=== PATIENT | female | born 1950 | race Caucasian/White ===

== ENCOUNTER 2020-09-06 12:30 | Outpatient (CLI) | payer MEDICARE | END 2020-09-06 23:59 | disposition home or self-care (01) | LOC: CFH 12:30 | PROVIDERS: ATTEND Internal Medicine | DX: Z12.2 Encounter for screening for malignant neoplasm of respiratory organs (principal); I25.10 Atherosclerotic heart disease of native coronary artery without angina pectoris; E04.9 Nontoxic goiter, unspecified; R91.1 Solitary pulmonary nodule; Z87.891 Personal history of nicotine dependence; Z90.49 Acquired absence of other specified parts of digestive tract | CPT/HCPCS: 71271 ==